=== PATIENT | male | born 1945 | race Caucasian/White ===

== ENCOUNTER 2019-01-08 12:59 | Inpatient (IN) ==
[2019-01-08] MEDS ORDERED: MetroNIDAZOLE 500 MG/100 ML 500 MG/100 ML BAG IVPB ONE (13:14)
[2019-01-08] MEDS ORDERED: *HR* FentaNYL (PF) 100 MCG/2 ML VIAL IVP ONE (13:17)
--- NOTE | 2019-01-08 13:18 | Emergency Department Note ---
Disposition Clinical Impression: Perforation of sigmoid colon due to diverticulitis UTI (urinary tract infection) Qualifiers: Urinary tract infection type: site unspecified Hematuria presence: without hematuria Qualified Code(s): N39.0 - Urinary tract infection, site not specified Disposition: Admitted As Inpatient Condition: Good Time of Disposition: 16:34 Abdominal Pain HPI - General Stated Complaint: Abdominal pain Time Seen by Provider: 01/08/19 13:05 Nursing Notes Reviewed: Yes Vital Signs Reviewed: Yes - History of Present Illness HPI Narrative: 73yo male presents from the [facility] for continued evaluation. He presented to their facility midmorning with left lower quadrant pain. Patient had a twinge of left lower quadrant pain approximately 2 weeks ago. He had intermittent twinges since. Yesterday, he began having continuous waxing and waning left lower quadrant pain. Described as sharp and stabbing. This became very intense this morning such that she could not tolerate it at home. [facility] their facility demonstrated perforated diverticulitis without abscess. He was transferred to this facility for continued care. [facility] lab work also demonstrated urinary tract infection. He was provided 1 g of Rocephin. No other antibiotics. PMH: GERD, KEIKO, hepatic cirrhosis, lumbar stenosis with sciatica, hx skin ca "not the bad kind per patient", CKD III, HTN, diabetes type 2 on insulin and oral anti-hyperglycemics, hx agent orange exposure She is not aware of any history of diverticulosis. No hx CAD, ACS, TIA, CVA Antiplatelet: ASA 81 PO Qday Anticoagulant: None ROS: Positive: Left lower quadrant pain, urinary urgency Negative: Fever, chills, nausea, vomiting, chest pain, back pain, flank pain, falls, diarrhea, constipation, melena, hematochezia - Related Data Allergies Allergy/AdvReac Type Severity Reaction Status Date / Time acetaminophen [From Vicodin] AdvReac Agitated Verified 01/08/19 16:22 hydrocodone [From Vicodin] AdvReac Agitated Verified 01/08/19 16:22 All systems ED: reviewed and negative except as stated. Review of Systems: As Per HPI Physical Exam Vital Signs Reviewed General: Patient is alert, oriented, and in mild distress from his abdominal pain. Head: atraumatic, normocephalic Eye: normal appearance, PERRL, EOMI, no scleral icterus, no conjunctival injection ENT: mucous membranes moist, normal external ear exam Neck: normal inspection, trachea midline, full ROM Chest: normal inspection, symmetric chest rise Respiratory: Good respiratory effort. Bilateral breath sounds are clear without wheezing, crackles, or rhonchi. Cardiovascular: Regular rate and rhythm. No clicks, rubs, gallops, or murmors. Normal heart sounds. Abdomen: Bowel sounds present normoactive. Abdomen is soft, nondistended. Mild diffuse tenderness with left upper and left lower quadrant moderate tenderness with moderate to severe left lower quadrant tenderness. No guarding or rebound. Unable to assess organomegaly secondary to patient's body habitus. Musculoskeletal: Spontaneously moving all extremities. Skin: warm, dry, intact. Neuro: GCS 15. No focal neurologic deficits observed. Psych: Patient's affect is appropriate for situation. Course Course Narrative: [facility] labs: Calcium 9.1 Lipase 57 Amylase 24 Sodium 141 Calcium 3.3 Chloride 105 CO2 28 Glucose 103 BUN 26 Creatinine 1.61 WBC 24.6 RBC 5.26 Hemoglobin 14.9 Hematocrit 1 44.3 Platelets 188.0 Neutrophils 78.8% Absolute neutrophil 19.4 Urine glucose negative Urine bilirubin negative Urine ketones negative Urine protein trace Urine nitrite positive Urine leukocyte esterase positive Urine bacteria many No lab value for urine epithelial cells but [facility] radiology report CT abdomen pelvis without contrast January 08 10:49 Findings: Diverticulosis. Inflammatory change within left lower quadrant. Several pockets of free air within left lower quadrant posterior to the descending colon/sigmoid colon junction. There is associated inflammatory stranding and small amount of free fluid. No organized abscess identified. No evidence for bowel obstruction. Appendix is unremarkable. Impression: Perforated left lower quadrant diverticulitis CT scan imaging received on disc which was given to nursing with request to give to radiology for upload Patient received 1 g Rocephin at the [facility] prior to transfer. At this facility: Patient provided Flagyl, Zosyn additional antibody coverage. Physical for pain control. Lactic acid, hepatic function with coagulation profile given history of hepatic cirrhosis, blood cultures. Discussed the patient with on-call general surgeon, Dr. roy. He is agreeable to see the patient on consultation with admission to internal medicine. No indication at this time for emergent surgery. Discussed the patient with the admitting hospitalist, Dr. Schmid. He is agreeable to accept the patient for continued evaluation monitoring with surgery on consult. Vital Signs Temperature 98.7 F 01/08/19 13:20 Pulse Rate 68 01/08/19 13:20 Respiratory Rate 16 01/08/19 13:20 Blood Pressure 124/68 01/08/19 13:20 O2 Sat by Pulse Oximetry 96 01/08/19 13:20 Temperature 98 F 01/08/19 16:24 Pulse Rate 70 01/08/19 16:24 Respiratory Rate 18 01/08/19 16:24 Blood Pressure 134/78 01/08/19 16:24 O2 Sat by Pulse Oximetry 95 01/08/19 16:24 Oxygen Delivery Oxygen Delivery Room Air Abdominal Pain - Lab Data Lab Results 01/08/19 01/08/19 01/08/19 Range/Units 13:40 13:40 13:40 PT 12.8 H (9.4-12.1) Seconds INR 1.1 Lactic Acid 1.0 (0.5-2.2) mmol/L Total Bilirubin 0.8 (0.3-1.0) mg/dL Direct Bilirubin 0.2 (0.0-0.2) mg/dL Indirect Bilirubin 0.6 (0.0-1.2) mg/dL AST 33 (13-39) Units/L ALT 36 (7-52) Units/L Alkaline Phosphatase 73 (34-104) Units/L Serum Total Protein 7.1 (6.4-8.9) g/dL Albumin 3.7 (3.5-5.7) g/dL Globulin 3.4 (2.4-3.5) g/dL Albumin/Globulin Ratio 1.1 (1.1-2.2)
[2019-01-08] MEDS ORDERED: Piperacillin/Tazobactam 4.5 GM in 0.9 % Sodium Chloride Mini Bag 100 ML IVPB ONE (13:31)
[2019-01-08] MEDS ORDERED: Piperacillin/Tazobactam 3.375 GM in 0.9 % Sodium Chloride Mini Bag 100 ML IVPB ONE (13:41)
[2019-01-08 14:18] LABS: Albumin 3.7 g/dL (3.5-5.7); Albumin/Globulin Ratio 1.1 (1.1-2.2); Bilirubin,Direct 0.2 mg/dL (0.0-0.2); Bilirubin,Indirect 0.6 mg/dL (0.0-1.2); Bilirubin,Total 0.8 mg/dL (0.3-1.0); Globulin 3.4 g/dL (2.4-3.5); Total Protein 7.1 g/dL (6.4-8.9)
[2019-01-08 14:23] LABS: INR 1.1; Prothrombin Time 12.8 Seconds (9.4-12.1)
--- NOTE | 2019-01-08 14:24 | Emergency Department Note ---
Disposition Clinical Impression: Perforation of sigmoid colon due to diverticulitis UTI (urinary tract infection) Qualifiers: Urinary tract infection type: site unspecified Hematuria presence: without hematuria Qualified Code(s): N39.0 - Urinary tract infection, site not specified Disposition: Admitted As Inpatient Condition: Good [facility]errals: [facility] [Primary Care Provider] - Abdominal Pain HPI - General Chief Complaint: ED Abdominal Pain Stated Complaint: Abdominal pain Time Seen by Provider: 01/08/19 13:05 Source: patient, EMS - History of Present Illness Pain Scale: 6 - Related Data Allergies Allergy/AdvReac Type Severity Reaction Status Date / Time acetaminophen [From Vicodin] AdvReac Agitated Verified 07/26/15 07:47 hydrocodone [From Vicodin] AdvReac Agitated Verified 07/26/15 07:47 Abdominal Pain PMH - Past Medical History Medical history: Reports: non-contributory, GERD Male Surgical History: Reports: non-contributory Psychiatric history: Reports: no psych history - Social History Smoking status: Never smoker Alcohol use: Reports: none Drug use: Reports: none Physical Exam - General Limitations: no limitations General appearance: alert, in no apparent distress Course Vital Signs Temperature 98.7 F 01/08/19 13:20 Pulse Rate 68 01/08/19 13:20 Respiratory Rate 16 01/08/19 13:20 Blood Pressure 124/68 01/08/19 13:20 O2 Sat by Pulse Oximetry 96 01/08/19 13:20 Temperature 98.7 F 01/08/19 13:20 Pulse Rate 68 01/08/19 13:20 Respiratory Rate 16 01/08/19 13:20 Blood Pressure 124/68 01/08/19 13:20 O2 Sat by Pulse Oximetry 96 01/08/19 13:20 Oxygen Delivery Oxygen Delivery Room Air Abdominal Pain - Lab Data Lab Results 01/08/19 01/08/19 Range/Units 13:40 13:40 Lactic Acid 1.0 (0.5-2.2) mmol/L Total Bilirubin 0.8 (0.3-1.0) mg/dL Direct Bilirubin 0.2 (0.0-0.2) mg/dL Indirect Bilirubin 0.6 (0.0-1.2) mg/dL AST 33 (13-39) Units/L ALT 36 (7-52) Units/L Alkaline Phosphatase 73 (34-104) Units/L Serum Total Protein 7.1 (6.4-8.9) g/dL Albumin 3.7 (3.5-5.7) g/dL Globulin 3.4 (2.4-3.5) g/dL Albumin/Globulin Ratio 1.1 (1.1-2.2) Attestation Statement - Attestation Attestation: I examined this patient and my medical decision-making was reviewed with the Resident Physician. I agree with the documented findings, disposition and treatment plan as described except to the extent set forth below. 73 year old male presnets to the ED with complaints of abdominal pain and [facility] a confirmed perforated diveriticulum without perionteal signs on his abdomen. Bee has stable vitals and we have consulted surgery who will see him as consult. Labs are otherwise unremarkable and we are waiting for a lactic acid to return. IVF ABX and IVF have been started
[2019-01-08] MEDS ORDERED: Naloxone 0.4 MG/ML INJ IVP PRN (15:55)
--- NOTE | 2019-01-08 16:01 | Internal Med History&Physical ---
Date of Encounter: 01/08/19 Time of Encounter: 15:59 Internal Medicine - H&P: HPI Chief complaint: Abdominal Pain Admitted From: Emergency Dept History of present illness: Alonso Ley is a 73 M w hx HTN, DM2, CKD3, KEIKO, obesity, ?cirrhosis, who p/w abd pain. Pain is in left lower quadrant and began several days back but significantly worsened yesterday, now all over his belly but still worse in LLQ. He and his and camped outside the [place] ED for evaluation this AM. Denies fevers, N/V, diarrhea. CT abdomen pelvis without contrast at their facility demonstrated perforated diverticulitis without abscess. He was transferred to this facility for continued care. Per excellent ED summary of patient's NH paperwork: NH labs: Lipase 57 Sodium 141 Potassium 3.3 Glucose 103 BUN 26 Creatinine 1.61 WBC 24.6 Hemoglobin 14.9 Platelets 188.0 Urine nitrite positive Urine leukocyte esterase positive Urine bacteria many [facility] radiology report: CT abdomen pelvis without contrast January 08 10:49 Impression: Perforated left lower quadrant diverticulitis In our ED, pt covered with Jennasyn, GenSurg Dr Urias notified, and patient admitted to medicine. Past Med Surg Social Fam HX - Past Medical History Medical history: non-contributory, GERD Psychiatric history: no psych history - Social History Smoking Status: Never smoker Smokeless Tobacco Status: No Alcohol use: none Drug use: none Internal Medicine - H&P: Meds Amino Acids/Mv,Th W-Fe,Mn [Biotect Plus Liquid] 3 - 5 spr PO BID PRN 01/08/19 [History] Amlodipine Besylate 2.5 mg PO DAILY 01/08/19 [History] Aspirin [Lo-Dose Aspirin EC] 81 mg PO DAILY 01/08/19 [History] Atenolol [Tenormin] 50 mg PO BID 01/08/19 [History] Cetirizine HCl [24Hour Allergy] 10 mg PO DAILY 01/08/19 [History] Fluticasone Propionate Nasal [Flonase] 2 spr NS HS 01/08/19 [History] Furosemide [Lasix] 80 mg PO DAILY 01/08/19 [History] GuaiFENesin/Dextromethorphan [Robitussin/DM] 10 ml PO Q6HR PRN 01/08/19 [History] Insulin Glargine [Lantus] 110 unit SQ BID 01/08/19 [History] Insulin Regular, Human [Novolin R] 35 unit SQ TIDWM 01/08/19 [History] Lidocaine Patch [Lidoderm 5% patch] 1 each TP DAILY 01/08/19 [History] Losartan Potassium [Cozaar] 50 mg PO BID 01/08/19 [History] Melatonin [Melatin] 3 mg PO HS 01/08/19 [History] Mupirocin [Bactroban Oint] 1 appl TP TID PRN 01/08/19 [History] Omeprazole [PriLOSEC] 20 mg PO BID 01/08/19 [History] Potassium Chloride [K-Tab ER] 20 meq PO DAILY 01/08/19 [History] Pregabalin [Lyrica] 150 mg PO BID 01/08/19 [History] Sodium Chloride 2 spr NS TID 01/08/19 [History] Tamsulosin HCl [Flomax] 0.4 mg PO DAILY 01/08/19 [History] Testosterone 60.75 mg TD DAILY 01/08/19 [History] glipiZIDE [Glipizide] 10 mg PO BID 01/08/19 [History] Allergy/AdvReac Type Severity Reaction Status Date / Time acetaminophen [From Vicodin] AdvReac Agitated Verified 01/08/19 16:22 hydrocodone [From Vicodin] AdvReac Agitated Verified 01/08/19 16:22 All Systems PM: A 10-system review of systems was performed and is negative for pertinent findings except as documented above in the HPI. - Constitutional Vitals: Temp Pulse Resp BP Pulse Ox 98.7 F 66 16 128/65 94 01/08/19 13:20 01/08/19 15:04 01/08/19 15:04 01/08/19 15:18 01/08/19 15:04 Exam: General: NAD, good eye contact, chronically ill appearing Head: Atraumatic, normocephalic. Face symmetric Eyes: EOMI, sclerae anicteric ENT: Mucous membranes moist. Normal oral mucosa and dentition. Trachea midline. Thoracic: No visible chest wall deformities. Normal breath sounds b/l, no wheezing or crackles Cardio: Normal S1 and S2, regular rate and rhythm, no murmurs. Abdomen: Obese and distended but per family is normal size, does have some tenderness LLQ and umbilical region, no rigidity or rebound tenderness Extremities: Warm, well perfused. DP pulses 2+ b/l. Does have edema to knees bilaterally and some dependent thigh edema Skin: Intact. No rashes, bruises, or ulcers Neuro: Drowsy, is oriented. Decent memory, poor concentration and attention. Speech fluent. Internal Med - H&P Results - Labs Labs: Liver Function 01/08/19 Range/Units 13:40 Total Bilirubin 0.8 (0.3-1.0) mg/dL Direct Bilirubin 0.2 (0.0-0.2) mg/dL AST 33 (13-39) Units/L ALT 36 (7-52) Units/L Alkaline Phosphatase 73 (34-104) Units/L Albumin 3.7 (3.5-5.7) g/dL - Summary of Assessment and Plan Summary of Assessment and Plan: Alonso Ley is a 73 M w hx HTN, DM2, CKD3, KEIKO, obesity, ?cirrhosis, who p/w abd pain, CT showing diverticulitis and air pockets, concerning for acute perforated diverticulitis. Acute diverticulitis c/b perforation: not tense/rigid on exam, does not seem to have peritonitis but could develop. Lactate normal. - GenSurg Dr Urias consulted, will see patient this afternoon, discussed case with him, to defer surgery if possible to avoid colostomy - Zosyn 3.375 q6h - no benefit from flagyl as zosyn covers anaerobes - serial abd exams - BCx pending HTN: continue atenolol 50 bid, holding losartan 100, amlodipine 2.5 DM2: holding PO meds, give levemir 30 bid (home dose is 110 bid per [facility] med list ?!), add SSI (home short acting is 35u tidac ?!) CKD3: noted, will monitor SC[facility] Obesity: BMI 37 Cirrhosis: reported in chart but patient's family unaware and denies this BPH: home flomax PPx: sqh FEN: NPO, no MIVF at this time Lines: PIV Consults: GenSurmarilyn Code: Full Dispo: patient requires inpatient eval and management at this time. Anticipate 4-5 days. From home; dispo depends on post-op course
[2019-01-08] MEDS ORDERED: Acetaminophen 325 MG TABLET PO PRN (17:54)
--- NOTE | 2019-01-08 17:57 | General Surgery Consult Note ---
Date of Encounter: 01/08/19 Time of Encounter: 17:55 History of Present Illness Consult date: 01/08/19 Reason for consult: abdominal pain (Diverticulosis, acute sigmoid diverticulitis with perforation) Requesting physician: Kev Barcenas History of present illness: 73-year-old transferred to [facility] after presenting to the [facility] urgent care with progressive abdominal pain. The patient describes left-sided abdominal pain for the past several weeks but has become progressively more severe over the past [address] abdomen and pelvis demonstrates diverticulosis with mural thickening and surrounding inflammatory changes within the left lower quadrant at the junction of the descending and sigmoid colons. Several pockets of extraluminal free air consistent with perforation and surrounding i nflammatory stranding is evident. No evidence of bowel obstruction or abscess was identified. The patient was transferred to [facility] for further evaluation and care Past medical history: Type 2 diabetes with chronic kidney disease stage III and polyneuropathy; obstructive sleep apnea; hypertension; chronic PTSD; chronic neck and back pain; hepatic cirrhosis; chronic laryngopharyngeal reflux; lumbosacral radiculopathy; spinal stenosis lumbar spine; ulnar neuropathy Surgical history: Cervical neck surgery; bilateral rotator cuff repair; stem cell implantation right knee; patient indicates he is scheduled for back surgery Allergies: Gemfibrozil; PRESTON inhibitors; oxycodone Medications: Glipizide 10 mg, 2 tablets twice a day Cetirizine 10 mg 1 by mouth daily as needed for allergy symptoms Fluticasone 2 sprays each nostril at bedtime Losartan 50 mg by mouth twice a day Potassium 10 mEq 2 tablets daily Atenolol 50 mg 1 by mouth twice a day Amlodipine 2.5 mg 1 by mouth daily Insulin glargine 110 units subcutaneous every morning and every evening Artificial saliva 3-5 sprays twice daily as needed for dry mouth Testosterone 1.62% 20.25 mg per pump topical gel 3 actuation's to affected area daily Pregabalin 150 mg by mouth twice a day Ketorolac 30 mg per mL 2 mL injectable into muscles for pain Furosemide 40 mg 2 tablets (80 mg) daily Omeprazole 20 mg by mouth twice a day Melatonin 3 mg 2 tablets/caps daily at bedtime Novolin R 35 units subcutaneous 3 times a day Tamsulosin 0.4 mg by mouth daily Lidoderm patch 5% 2 patches to the selected areas every 24 hours Social history: Patient is , lives with spouse; he quit smoking in 1976, he denies any active alcohol or illicit drug use. Physical examination: Age-appropriate, in no acute distress. He is lying comfortably in his hospital bed. The patient is afebrile, currently 98, pulse 70 and regular, respirations 18, blood pressure 134/78; 1.78 m tall, 117 kg, BMI 37.0 Skin: Warm, no obvious jaundice Lungs: Clear bilaterally; no obvious abdominal pain on deep inspiration Cardiac: Regular rate, no appreciable murmurs Abdomen obese with tenderness in the left lower quadrant. There is referred pain from the right lower quadrant to the left lower quadrant. There is abdominal pain with cough as well as localized rebound in the left lower quadrant. Bowel sounds were active. Extremities no obvious clubbing, cyanosis, or edema. CT abdomen/pelvis from the [facility], is not available for my review at the time of this dictation Labs: (Resulted from [facility]) WBC 24.6, hemoglobin 14.9, hematocrit 44.3; absolute neutrophil count 19.4; platelet count 188,000. Sodium 141, potassium 3.3, chloride 105, BUN 26, creatinine 1.61. Impression: 73-year-old referred from the [facility] after presenting with left lower quadrant abdominal pain. Patient demonstrates significant leukocytosis at 24.6 with radiologic evidence of diverticulosis, di verticulitis with focal perforation at the junction of the distal descending and sigmoid colon. The patient is hemodynamically stable. Treatment plan: NPO; pain control and antiemetics as needed IV antibiotics- I recommend Zosyn 3.375 g IV Q8H and metronidazole 500 mg IV Q6H for aggressive management of the acute inflammation evident on CT and clinical exam I will follow along with you and provide serial abdominal exams. If the patient responds to IV antibiotics with resolution of the acute abdominal inflammation, interval primary sigmoid colectomy can be considered in several days to 1 week. If the abdominal pain worsens or clinical status deteriorates, the patient will require an urgent Dino procedure. This is been discussed extensively with the and his family in attendance. If at all possible, the would prefer to avoid a Dino procedure as this would result in an end colostomy. Thank you for this consultation. Past Med Surg Social Fam HX - Past Medical History Medical history: non-contributory, GERD Psychiatric history: no psych history - Social History Smoking Status: Never smoker Smokeless Tobacco Status: No Alcohol use: none Drug use: none Medications and Allergies Amino Acids/Mv,Th W-Fe,Mn [Biotect Plus Liquid] 3 - 5 spr PO BID PRN 01/08/19 [History] Amlodipine Besylate 2.5 mg PO DAILY 01/08/19 [History] Aspirin [Lo-Dose Aspirin EC] 81 mg PO DAILY 01/08/19 [History] Atenolol [Tenormin] 50 mg PO BID 01/08/19 [History] Cetirizine HCl [24Hour Allergy] 10 mg PO DAILY 01/08/19 [History] Fluticasone Propionate Nasal [Flonase] 2 spr NS HS 01/08/19 [History] Furosemide [Lasix] 80 mg PO DAILY 01/08/19 [History] GuaiFENesin/Dextromethorphan [Robitussin/DM] 10 ml PO Q6HR PRN 01/08/19 [History] Insulin Glargine [Lantus] 110 unit SQ BID 01/08/19 [History] Insulin Regular, Human [Novolin R] 35 unit SQ TIDWM 01/08/19 [History] Lidocaine Patch [Lidoderm 5% patch] 1 each TP DAILY 01/08/19 [History] Losartan Potassium [Cozaar] 50 mg PO BID 01/08/19 [History] Melatonin [Melatin] 3 mg PO HS 01/08/19 [History] Mupirocin [Bactroban Oint] 1 appl TP TID PRN 01/08/19 [History] Omeprazole [PriLOSEC] 20 mg PO BID 01/08/19 [History] Potassium Chloride [K-Tab ER] 20 meq PO DAILY 01/08/19 [History] Pregabalin [Lyrica] 150 mg PO BID 01/08/19 [History] Sodium Chloride 2 spr NS TID 01/08/19 [History] Tamsulosin HCl [Flomax] 0.4 mg PO DAILY 01/08/19 [History] Testosterone 60.75 mg TD DAILY 01/08/19 [History] glipiZIDE [Glipizide] 10 mg PO BID 01/08/19 [History] Allergy/AdvReac Type Severity Reaction Status Date / Time acetaminophen [From Vicodin] AdvReac Agitated Verified 01/08/19 16:22 hydrocodone [From Vicodin] AdvReac Agitated Verified 01/08/19 16:22 Review of Systems All systems PM: The remainder of the systems were reviewed and are negative General Surgery Exam Initial Vital Signs Temp Pulse Resp BP Pulse Ox 98.7 F 68 16 124/68 96 01/08/19 13:20 01/08/19 13:20 01/08/19 13:20 01/08/19 13:20 01/08/19 13:20 Exam Initial Vital Signs Temp Pulse Resp BP Pulse Ox 98.7 F 68 16 124/68 96 01/08/19 13:20 01/08/19 13:20 01/08/19 13:20 01/08/19 13:20 01/08/19 13:20 Results - Labs Abnormal lab results PT 12.8 Seconds (9.4-12.1) H 01/08/19 13:40 Diabetes panel 01/08/19 Range/Units 13:40 AST 33 (13-39) Units/L ALT 36 (7-52) Units/L Alkaline Phosphatase 73 (34-104) Units/L Albumin 3.7 (3.5-5.7) g/dL Calcium panel 01/08/19 Range/Units 13:40 Albumin 3.7 (3.5-5.7) g/dL Adrenal panel 01/08/19 Range/Units 13:40 Total Bilirubin 0.8 (0.3-1.0) mg/dL AST 33 (13-39) Units/L ALT 36 (7-52) Units/L Alkaline Phosphatase 73 (34-104) Units/L Albumin 3.7 (3.5-5.7) g/dL All other labs normal. Consult Discharge Plan - Plan [facility]errals: [facility] [Primary Care Provider] -
[2019-01-08] MEDS: Piperacillin/Tazobactam 3.375 GM in 0.9 % Sodium Chloride Mini Bag 100 ML IVPB SCH (17:58)
[2019-01-08] MEDS: *HR* Heparin 5,000 UNIT/ML VIAL SQ SCH (18:00)
[2019-01-08] MEDS ORDERED: INSULIN GLARGINE SQ SCH (21:00)
[2019-01-08] MEDS: Pregabalin 75 MG CAPSULE PO SCH (21:46)
[2019-01-09] MEDS: Piperacillin/Tazobactam 3.375 GM in 0.9 % Sodium Chloride Mini Bag 100 ML IVPB SCH ×3 (02:08→17:30)
[2019-01-09] MEDS: *HR* Heparin 5,000 UNIT/ML VIAL SQ SCH ×2 (05:22→17:29)
[2019-01-09 06:46] LABS: Basophils % 0.2 %; Eosinophils # 0.1 K/mcL (0.0-0.6); Eosinophils % 0.4 %; Hematocrit 44.7 % (37.5-50.1); Hemoglobin 14.7 g/dL (12.9-16.9); Immature Granulocytes % 0.6 % (0-4); Lymphocytes # 2.1 K/mcL (0.6-4.6); Lymphocytes % 10.2 %; Mean Corpuscular HGB Conc 32.9 g/dL (31.6-35.5); Mean Corpuscular Hemoglobin 27.9 pg (28.0-33.3); Mean Corpuscular Volume 84.8 fL (83.0-100.0); Mean Platelet Volume 11.6 fL (9.4-12.4); Monocytes # 1.1 K/mcL (0.0-1.3); Monocytes % 5.4 %; Platelet Count 166 K/mcL (140-400); Red Blood Count 5.27 M/mcL (4.19-5.50); Red Cell Distribution Width 15.1 % (11.5-14.5); Segmented Neutrophils % 83.2 %
[2019-01-09 06:58] LABS: INR 1.2; Prothrombin Time 13.3 Seconds (9.4-12.1)
[2019-01-09 07:07] LABS: Albumin 3.5 g/dL (3.5-5.7); Bilirubin,Direct 0.5 mg/dL (0.0-0.2); Bilirubin,Indirect 0.9 mg/dL (0.0-1.2); Bilirubin,Total 1.4 mg/dL (0.3-1.0); Bilirubin,Total 1.5 mg/dL (0.3-1.0); Calcium 9.5 mg/dL (8.6-10.3); Globulin 3.5 g/dL (2.4-3.5); Magnesium 2.1 mg/dL (1.6-2.6); Potassium 3.5 mEq/L (3.5-5.1)
[2019-01-09] MEDS ORDERED: Dextrose Gel 15 GM/37.5 ML TUBE PO PRN ×2 (08:04)
[2019-01-09] MEDS ORDERED: D5% in Water 1,000 ML IVC PRN (08:04)
[2019-01-09] MEDS ORDERED: *HR* Dextrose 50 % in Water (Syg) 50 ML SYRINGE IVP PRN (08:04)
[2019-01-09] MEDS: Pregabalin 75 MG CAPSULE PO SCH ×2 (10:14→21:01)
[2019-01-09] MEDS: Aspirin Enteric Coated 81 MG Tablet PO SCH (10:15)
[2019-01-09] MEDS: D5% in 0.9% NACL 1,000 ML IVC SCH ×2 (10:17→22:20)
--- NOTE | 2019-01-09 12:20 | General Surgery Progress Note ---
Date of Encounter: 01/09/19 Time of Encounter: 12:14 Subjective Narrative: General Surgery - Hospital Day #1 The patient is feeling better, denies abdominal pain. Maximum temperature earlier this morning 99.9, currently 98.1; pulse 73, ranging 73-90; respiratory rate 14 and unlabored. Blood pressure 116/66. SPO2 on room air 93% Lungs: Clear, no obvious abdominal pain on deep inspiration Abdomen protuberant, soft, nontender. No obvious intra-abdominal masses. No rebound. Active bowel sounds. Laboratories: WBC 20.5, neutrophils 17.0; hemoglobin 14.7, hematocrit 44.7; platelet count 166,000. Electrolytes within normal limits; BUN 23, creatinine 1.53. (BUN yesterday per [facility], 26, creatinine 1.61) CT from [facility] was reviewed with [place] [facility]. Impression: 73-year-old transferred from [facility] after presenting there with progressive abdominal pain. Clinical and radiologic findings were consistent with acute perforated appendicitis. Review of the CT with [place] [facility] shows focal inflammation and localized perforation. No obvious abscess formation. Since transfer to [facility] the patient has responded to IV antibiotic therapy. Abdominal pain is described as resolved. Leukocytosis is trending towards normal. Renal status is also improved. Recommendations: Allow ice chips sparingly Continue Zosyn and metronidazole Repeat labs in a.m. Objective Vital Signs - Last 8 Hours Temp Pulse Resp BP Pulse Ox 01/09/19 10:46 98.1 F 73 15 117/65 93 01/09/19 07:00 99.0 F 77 14 116/66 93 01/09/19 05:23 99.9 F H Intake and Output 01/08/19 01/09/19 01/09/19 23:59 07:59 15:59 Intake Total 100 / 100 100 / 100 Output Total 725 / 725 200 / 200 Balance -625 / -625 -100 / -100 Intake: IV Fluids 100 / 100 100 / 100 Zosyn 3.375 GM In 0.9 % Sodium 100 / 100 100 / 100 Chloride (Mini-Bag +) 100 ML @ 25 mls/hr IVPB Q8H [facility]Y Rx#: [id number] Oral 0 / 0 0 / 0 Output: Urine 725 / 725 200 / 200 Other: Meal npo # Voids 1 Weight 117 kg 117.4 kg Blood Glucose* 86 107 131 Patient Weight 01/09/19 23:59 Weight 117.4 kg - Labs 01/09/19 05:41 01/09/19 05:41 Diabetes panel 01/08/19 01/09/19 01/09/19 Range/Units 13:40 05:41 05:41 Sodium 139 (136-145) mEq/L Potassium 3.5 (3.5-5.1) mEq/L Chloride 103 (98-107) mEq/L Carbon Dioxide 27 (23-29) mEq/L BUN 23 (8-23) mg/dL Creatinine 1.53 H (0.70-1.30) mg/dL Glucose 102 (70-105) mg/dL Calcium 9.5 (8.6-10.3) mg/dL AST 33 26 25 (13-39) Units/L ALT 36 30 30 (7-52) Units/L Alkaline Phosphatase 73 70 72 (34-104) Units/L Albumin 3.7 3.5 3.5 (3.5-5.7) g/dL Calcium panel 01/08/19 01/09/19 01/09/19 Range/Units 13:40 05:41 05:41 Calcium 9.5 (8.6-10.3) mg/dL Albumin 3.7 3.5 3.5 (3.5-5.7) g/dL Pituitary panel 01/09/19 Range/Units 05:41 Sodium 139 (136-145) mEq/L Potassium 3.5 (3.5-5.1) mEq/L Chloride 103 (98-107) mEq/L Carbon Dioxide 27 (23-29) mEq/L BUN 23 (8-23) mg/dL Creatinine 1.53 H (0.70-1.30) mg/dL Glucose 102 (70-105) mg/dL Calcium 9.5 (8.6-10.3) mg/dL Adrenal panel 01/08/19 01/09/19 01/09/19 Range/Units 13:40 05:41 05:41 Sodium 139 (136-145) mEq/L Potassium 3.5 (3.5-5.1) mEq/L Chloride 103 (98-107) mEq/L Carbon Dioxide 27 (23-29) mEq/L BUN 23 (8-23) mg/dL Creatinine 1.53 H (0.70-1.30) mg/dL Glucose 102 (70-105) mg/dL Calcium 9.5 (8.6-10.3) mg/dL Total Bilirubin 0.8 1.5 H 1.4 H (0.3-1.0) mg/dL AST 33 26 25 (13-39) Units/L ALT 36 30 30 (7-52) Units/L Alkaline Phosphatase 73 70 72 (34-104) Units/L Albumin 3.7 3.5 3.5 (3.5-5.7) g/dL Consult Discharge Plan - Plan [facility]errals: [facility] [Primary Care Provider] -
--- NOTE | 2019-01-09 13:19 | Internal Med Progress Note ---
Hospitalist Progress Note - Encounter Date of Encounter: 01/09/19 Time of Encounter: 13:17 - Subjective Interval History: I have seen and evaluated the patient at bedside. Patient reports abdominal discomfort but improved when compared with presentation. denies nausea or vomiting. - Exam Vitals: Temp Pulse Resp BP Pulse Ox 98.1 F 73 15 117/65 93 01/09/19 10:46 01/09/19 10:46 01/09/19 10:46 01/09/19 10:46 01/09/19 10:46 Exam: Vitals: Reviewed General: Alert and oriented x4. In mild distress due to abdominal discomfort Skin: Normal color, no rash, no lesions. HEENT: EOM, pupils equal, round and reactive. Cardiovascular: RRR, normal S1 & S2, no rubs, murmurs or gallops. Lungs: CTA b/l, no wheezes or crackles. Abdomen: Obese, soft, non-tender, no rigidity. NABS in all 4 quadrants Extremities: No deformity, no edema or tenderness, no joint swelling or clubbing. Neurological: Normal cognition and motor skills. Rest of the physical exam is non contributory - Assessment and Plan (1) Perforation of sigmoid colon due to diverticulitis Current Visit: Yes Status: Acute Assessment and Plan: patient is on broad spectrum IV antibiotics. On Piperacillin/tazobactam 3.375mg/IV Q8HRs and metronidazole 500mg/IV Q6HRs. surgery recommendations haresh reciated. (2) XIMENA (acute kidney injury) Current Visit: Yes Status: Acute Assessment and Plan: unclear whether this an ximena or its the patient baseline. patient on IV hydration. will re-assess kidney function in the morning. (3) Diabetes Current Visit: Yes Status: Chronic Assessment and Plan: patient is NPO. accu-checks Q6HRs, plus lispro sliding scale. on IV hydration to avoid hypoglycemia (4) Hypertension Current Visit: Yes Status: Chronic Assessment and Plan: BP is well controlled on atenolol. patient on losartan 50mg/PO BID and furosemide 80mg/PO daily as outpatient, held due to suspected XIMENA. DVT Prophylaxis: on heparin subq - Summary of Assessment and Plan Summary of Assessment and Plan: patient to remain in the hospital due to perforated bowel on broad spectrum IV antibiotics - Time Spent with Patient Total time spent is greater than 50% in coordination of care (as documented) at patient's floor/unit and/or counseling patient: Greater than 35 minutes (40) Plan of Care Discussed with: patient (his family and the nurse.) Internal Medicine: Result - Labs CBC & Chem 7: 01/09/19 05:41 01/09/19 05:41 Labs: Short CBC 01/09/19 Range/Units 05:41 WBC 20.5 H (4.3-11.1) K/mcL Hgb 14.7 (12.9-16.9) g/dL Hct 44.7 (37.5-50.1) % Plt Count 166 (140-400) K/mcL Neutrophils # 17.0 H (1.6-8.9) K/mcL BMP 01/09/19 05:41 Sodium 139 Potassium 3.5 Chloride 103 Carbon Dioxide 27 BUN 23 Creatinine 1.53 H Glucose 102 Calcium 9.5 Liver Function 01/08/19 01/09/19 01/09/19 Range/Units 13:40 05:41 05:41 Total Bilirubin 0.8 1.5 H 1.4 H (0.3-1.0) mg/dL Direct Bilirubin 0.2 0.5 H (0.0-0.2) mg/dL AST 33 26 25 (13-39) Units/L ALT 36 30 30 (7-52) Units/L Alkaline Phosphatase 73 70 72 (34-104) Units/L Albumin 3.7 3.5 3.5 (3.5-5.7) g/dL - ABG Interpretation ABG results: PT/INR, D-dimer PT 13.3 Seconds (9.4-12.1) H 01/09/19 05:41 Consult Discharge Plan - Plan Referrals: [facility] [Primary Care Provider] - (3) Diabetes Qualifiers: Diabetes mellitus type: type 2 Diabetes mellitus chcf insulin use: unspe cified chcf insulin use status Diabetes mellitus complication status: with unspecified complications Qualified Code(s): E11.8 - Type 2 diabetes mellitus with unspecified complications (4) Hypertension Qualifiers: Hypertension type: unspecified Qualified Code(s): I10 - Essential (primary) hypertension
[2019-01-09] MEDS: Insulin LISPRO 300 UNITS/3 ML VIAL SQ SCH ×2 (14:25→17:58)
[2019-01-09] MEDS: MetroNIDAZOLE 500 MG/100 ML 500 MG/100 ML BAG IVPB SCH ×2 (14:29→17:29)
[2019-01-10] MEDS: Insulin LISPRO 300 UNITS/3 ML VIAL SQ SCH ×4 (01:24→18:57)
[2019-01-10] MEDS: Piperacillin/Tazobactam 3.375 GM in 0.9 % Sodium Chloride Mini Bag 100 ML IVPB SCH ×3 (01:29→18:57)
[2019-01-10] MEDS: *HR* Heparin 5,000 UNIT/ML VIAL SQ SCH (05:19)
[2019-01-10] MEDS: MetroNIDAZOLE 500 MG/100 ML 500 MG/100 ML BAG IVPB SCH ×4 (05:20→19:19)
[2019-01-10 06:32] LABS: Basophils % 0.2 %; Eosinophils # 0.1 K/mcL (0.0-0.6); Eosinophils % 0.9 %; Hematocrit 40.5 % (37.5-50.1); Hemoglobin 13.2 g/dL (12.9-16.9); Immature Granulocytes % 0.5 % (0-4); Lymphocytes # 1.8 K/mcL (0.6-4.6); Lymphocytes % 13.6 %; Mean Corpuscular HGB Conc 32.6 g/dL (31.6-35.5); Mean Corpuscular Hemoglobin 27.9 pg (28.0-33.3); Mean Corpuscular Volume 85.6 fL (83.0-100.0); Mean Platelet Volume 11.3 fL (9.4-12.4); Monocytes # 0.8 K/mcL (0.0-1.3); Monocytes % 6.1 %; Neutrophils # 10.2 K/mcL (1.6-8.9); Platelet Count 112 K/mcL (140-400); Red Blood Count 4.73 M/mcL (4.19-5.50); Red Cell Distribution Width 14.7 % (11.5-14.5); Segmented Neutrophils % 78.7 %
[2019-01-10 06:52] LABS: BUN/Creatinine Ratio 15 (6-26); Blood Urea Nitrogen 20 mg/dL (8-23); Calcium 8.9 mg/dL (8.6-10.3); Carbon Dioxide 28 mEq/L (23-29); Chloride 104 mEq/L (98-107); Glucose 200 mg/dL (70-105); Osmolality,Calculated 294 (280-300); Potassium 3.8 mEq/L (3.5-5.1); Sodium 138 mEq/L (136-145); eGFR For Non-African Americans 53 (> 60)
[2019-01-10] MEDS: Aspirin Enteric Coated 81 MG Tablet PO SCH (08:25)
[2019-01-10] MEDS: Pregabalin 75 MG CAPSULE PO SCH ×2 (08:25→20:59)
--- NOTE | 2019-01-10 09:02 | Internal Med Progress Note ---
Hospitalist Progress Note - Encounter Date of Encounter: 01/10/19 Time of Encounter: 09:01 - Subjective Interval History: I have seen and evaluated the patient at bedside. Patient reports his abdominal pain has decreased, denies nausea or vomiting. Denies loose stool or diarrhea. - Exam Vitals: Temp Pulse Resp BP Pulse Ox 99.0 F 77 14 120/68 92 01/10/19 06:23 01/10/19 06:23 01/10/19 06:23 01/10/19 06:23 01/10/19 06:23 Exam: Vitals: Reviewed General: Alert and oriented x4. In no acute distress. Cardiovascular: RRR, normal S1 & S2, no rubs, murmurs or gallops. Lungs: CTA b/l, no wheezes or crackles. Abdomen: Obese, soft, LLQ tenderness, no rigidity. NABS in all 4 quadrants Extremities: No edema Neurological: Normal cognition. Rest of the physical exam is non contributory - Assessment and Plan (1) Perforation of sigmoid colon due to diverticulitis Current Visit: Yes Status: Acute Assessment and Plan: Abdominal discomfort improving. patient afebrile for >24 hours. Plan plan of care per surgery recommendations continue broad spectrum IV antibiotics. On Piperacillin/tazobactam 3.375mg/IV Q8HRs and metronidazole 500mg/IV Q6HRs. Decrease IV fluids to 50 ml/hr. On D5NS, unclear if patient has a Hx of CHF, he is on 80mg of furosemide at home. Will order TTE for evaluation NPO except for ice chips. (2) Diabetes Current Visit: Yes Status: Chronic Assessment and Plan: Patient is NPO. continue Accu-checks Q6HRs plus lispro low dose sliding scale Q6HRs (3) Hypertension Current Visit: Yes Status: Chronic Assessment and Plan: Blood pressure is well controlled. Patient is on a beta carolyn. Continue to hold amlodipine, furosemide and losartan (4) CKD (chronic kidney disease) Current Visit: Yes Status: Chronic Assessment and Plan: slight improvement of the kidney function on IV hydration. will continue to hold furosemide for one more day. continue nephro-protective strategies. DVT Prophylaxis: On heparin subQ. - Summary of Assessment and Plan Summary of Assessment and Plan: patient to remain in the hospital due to perforated bowel on broad spectrum IV antibiotics - Time Spent with Patient Total time spent is greater than 50% in coordination of care (as documented) at patient's floor/unit and/or counseling patient: Greater than 35 minutes (40) Plan of Care Discussed with: patient (and the nurse.) Internal Medicine: Result - Labs CBC & Chem 7: 01/10/19 06:12 01/10/19 06:12 Labs: Short CBC 01/10/19 Range/Units 06:12 WBC 12.9 H (4.3-11.1) K/mcL Hgb 13.2 D (12.9-16.9) g/dL Hct 40.5 (37.5-50.1) % Plt Count 112 L (140-400) K/mcL Neutrophils # 10.2 H (1.6-8.9) K/mcL BMP 01/10/19 06:12 Sodium 138 Potassium 3.8 Chloride 104 Carbon Dioxide 28 BUN 20 Creatinine 1.32 H Glucose 200 H Calcium 8.9 - ABG Interpretation ABG results: PT/INR, D-dimer PT 13.3 Seconds (9.4-12.1) H 01/09/19 05:41 Consult Discharge Plan - Plan Referrals: [facility] [Primary Care Provider] - (2) Diabetes Qualifiers: Diabetes mellitus type: type 2 Diabetes mellitus shelter insulin use: unspecified shelter insulin use status Diabetes mellitus complication status: with unspecified complications Qualified Code(s): E11.8 - Type 2 diabetes mellitus with unspecified complications (3) Hypertension Qualifiers: Hypertension type: unspecified Qualified Code(s): I10 - Essential (primary) hypertension (4) CKD (chronic kidney disease) Qualifiers: Chronic kidney disease stage: stage 2 (mild) Qualified Code(s): N18.2 - Chronic kidney disease, stage 2 (mild)
--- NOTE | 2019-01-10 13:30 | General Surgery Progress Note ---
Date of Encounter: 01/10/19 Time of Encounter: 13:26 Subjective Narrative: General Surgery - Hospital Day #2 Patient feeling well, describes pain to be regressing Afebrile, MAXIMUM TEMPERATURE 99.0 in the last 24 hours; pulse 75-79, respirations 14-15, blood pressure stable at 129/75 Lungs: Clear, no abdominal pain and deep inspiration Abdomen protuberant with minimal tenderness left lower quadrant to deep palpation. No obvious intra-abdominal masses or rebound. Patient describes passage of small amounts of flatus. No BM Urine output approximately 700 mL for 01/09/19; 500 mL so far today Labs: WBC has fallen to 12.9, neutrophils 10.2 (previously 17.0) hemoglobin 13.2/hematocrit 40.5. Platelet count has fallen to 112,000. Electrolytes within normal limits, BUN 20, creatinine has improved to 1.32. eGFR 53 (previously 45) Impression: Acute perforated sigmoid diverticulitis. Patient responding to IV antibiotics. 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) Recommendations: Continue Zosyn and metronidazole Hold heparin Allow clear liquids Continue to monitor her abdominal status closely Objective Vital Signs - Last 8 Hours Temp Pulse Resp BP Pulse Ox 01/10/19 10:32 98.7 F 79 15 129/75 94 01/10/19 06:23 99.0 F 77 14 120/68 92 Intake and Output 01/09/19 01/10/19 01/10/19 23:59 07:59 15:59 Intake Total 1200 / 1200 300 / 300 Output Total 500 / 500 200 / 200 300 / 300 Balance 700 / 700 100 / 100 -300 / -300 Intake: IV Fluids 1200 / 1200 300 / 300 D5% And 0.9% Nacl 1000 Ml 1,000 1000 / 1000 ML @ 75 mls/hr IVC .[id number] [facility]Y Rx#:[id number] Flagyl Premix 500 MG/100 ML 500 100 / 100 200 / 200 mg In 100 ml @ 100 mls/hr IVPB Q6HR [facility]Y Rx#:[id number] Zosyn 3.375 GM In 0.9 % Sodium 100 / 100 100 / 100 Chloride (Mini-Bag +) 100 ML @ 25 mls/hr IVPB Q8H [facility]Y Rx#: [id number] Oral 0 / 0 0 / 0 Output: Urine 500 / 500 200 / 200 300 / 300 Other: Meal npo NPO # Voids 1 Blood Glucose* 136 183 193 - Labs 01/10/19 06:12 01/10/19 06:12 Diabetes panel 01/10/19 Range/Units 06:12 Sodium 138 (136-145) mEq/L Potassium 3.8 (3.5-5.1) mEq/L Chloride 104 (98-107) mEq/L Carbon Dioxide 28 (23-29) mEq/L BUN 20 (8-23) mg/dL Creatinine 1.32 H (0.70-1.30) mg/dL Glucose 200 H (70-105) mg/dL Calcium 8.9 (8.6-10.3) mg/dL Calcium panel 01/10/19 Range/Units 06:12 Calcium 8.9 (8.6-10.3) mg/dL Pituitary panel 01/10/19 Range/Units 06:12 Sodium 138 (136-145) mEq/L Potassium 3.8 (3.5-5.1) mEq/L Chloride 104 (98-107) mEq/L Carbon Dioxide 28 (23-29) mEq/L BUN 20 (8-23) mg/dL Creatinine 1.32 H (0.70-1.30) mg/dL Glucose 200 H (70-105) mg/dL Calcium 8.9 (8.6-10.3) mg/dL Adrenal panel 01/10/19 Range/Units 06:12 Sodium 138 (136-145) mEq/L Potassium 3.8 (3.5-5.1) mEq/L Chloride 104 (98-107) mEq/L Carbon Dioxide 28 (23-29) mEq/L BUN 20 (8-23) mg/dL Creatinine 1.32 H (0.70-1.30) mg/dL Glucose 200 H (70-105) mg/dL Calcium 8.9 (8.6-10.3) mg/dL Consult Discharge Plan - Plan [facility]errals: [facility] [Primary Care Provider] -
[2019-01-10] MEDS: D5% in 0.9% NACL 1,000 ML IVC SCH (18:59)
[2019-01-11] MEDS: Insulin LISPRO 300 UNITS/3 ML VIAL SQ SCH ×4 (00:06→17:15)
[2019-01-11] MEDS: Piperacillin/Tazobactam 3.375 GM in 0.9 % Sodium Chloride Mini Bag 100 ML IVPB SCH ×3 (02:17→17:34)
[2019-01-11] MEDS: D5% in 0.9% NACL 1,000 ML IVC SCH (02:21)
[2019-01-11 04:50] LABS: Basophils % 0.3 %; Eosinophils # 0.2 K/mcL (0.0-0.6); Eosinophils % 1.5 %; Hematocrit 39.1 % (37.5-50.1); Hemoglobin 12.7 g/dL (12.9-16.9); Immature Granulocytes % 0.8 % (0-4); Lymphocytes # 1.7 K/mcL (0.6-4.6); Lymphocytes % 15.7 %; Mean Corpuscular HGB Conc 32.5 g/dL (31.6-35.5); Mean Corpuscular Hemoglobin 28.4 pg (28.0-33.3); Mean Corpuscular Volume 87.5 fL (83.0-100.0); Mean Platelet Volume 11.5 fL (9.4-12.4); Monocytes # 0.9 K/mcL (0.0-1.3); Monocytes % 8.1 %; Neutrophils # 8.1 K/mcL (1.6-8.9); Platelet Count 118 K/mcL (140-400); Red Blood Count 4.47 M/mcL (4.19-5.50); Red Cell Distribution Width 14.6 % (11.5-14.5); Segmented Neutrophils % 73.6 %
[2019-01-11 05:10] LABS: BUN/Creatinine Ratio 12 (6-26); Blood Urea Nitrogen 13 mg/dL (8-23); Calcium 8.6 mg/dL (8.6-10.3); Carbon Dioxide 25 mEq/L (23-29); Chloride 107 mEq/L (98-107); Glucose 178 mg/dL (70-105); Magnesium 2.1 mg/dL (1.6-2.6); Osmolality,Calculated 293 (280-300); Phosphorous 2.1 mg/dL (2.7-4.5); Potassium 3.4 mEq/L (3.5-5.1); Sodium 139 mEq/L (136-145); eGFR For Non-African Americans > 60 (> 60)
[2019-01-11] MEDS: MetroNIDAZOLE 500 MG/100 ML 500 MG/100 ML BAG IVPB SCH ×5 (05:58→23:05)
[2019-01-11] MEDS: Pregabalin 75 MG CAPSULE PO SCH ×2 (08:48→20:32)
[2019-01-11] MEDS: Aspirin Enteric Coated 81 MG Tablet PO SCH (08:48)
[2019-01-11] MEDS ORDERED: Isovue-370 500 ML BOTTLE IVP ONE (11:13)
--- NOTE | 2019-01-11 11:23 | General Surgery Progress Note ---
Date of Encounter: 01/11/19 Time of Encounter: 11:18 Subjective Narrative: General Surgery - Hospital Day #3 Patient feeling well, voicing no complaints; abdominal pain continues to regress. Afebrile, 98.7, pulse 86, RR 18; BP 140/75 Patient is tolerating clear liquids, no abdominal distention, increased pain, nausea or vomiting. Abdomen is protuberant with minimal tenderness to deep palpation left lower quadrant. Active bowel sounds. Laboratories: Leukocytosis has resolved, WBC 11.1, neutrophils have normalized 8.1. Platelet count 118,000 Electrolytes notable for potassium 3.4 with phosphorus 2.1, otherwise electrolytes, BUN, creatinine within normal limits Impression: Acute perforated sigmoid diverticulitis. 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 - Supplementation ordered Plan: Check CT abdomen and pelvis with oral and IV contrast in a.m. Continue IV Zosyn and metronidazole Allow full liquid diet Objective Vital Signs - Last 8 Hours Temp Pulse Resp BP Pulse Ox 01/11/19 08:16 98.7 F 86 18 148/75 98 01/11/19 04:37 98.9 F 75 15 131/71 94 Intake and Output 01/10/19 01/11/19 01/11/19 23:59 07:59 15:59 Intake Total 740 / 740 1200 / 1200 Output Total 200 / 200 0 / 0 Balance 540 / 540 1200 / 1200 Intake: IV Fluids 200 / 200 1200 / 1200 D5% And 0.9% Nacl 1000 Ml 1,000 1000 / 1000 ML @ 50 mls/hr IVC .Q20H [facility]Y Rx#:[id number] Flagyl Premix 500 MG/100 ML 500 100 / 100 100 / 100 mg In 100 ml @ 100 mls/hr IVPB Q6HR [facility]Y Rx#:[id number] Zosyn 3.375 GM In 0.9 % Sodium 100 / 100 100 / 100 Chloride (Mini-Bag +) 100 ML @ 25 mls/hr IVPB Q8H [facility]Y Rx#: [id number] Oral 540 / 540 0 / 0 Output: Urine 200 / 200 0 / 0 Other: Meal CLEARS Weight 117.4 kg Blood Glucose* 253 171 Patient Weight 01/11/19 23:59 Weight 117.4 kg - Labs 01/11/19 04:10 01/11/19 04:10 Diabetes panel 01/11/19 Range/Units 04:10 Sodium 139 (136-145) mEq/L Potassium 3.4 L (3.5-5.1) mEq/L Chloride 107 (98-107) mEq/L Carbon Dioxide 25 (23-29) mEq/L BUN 13 (8-23) mg/dL Creatinine 1.09 (0.70-1.30) mg/dL Glucose 178 H (70-105) mg/dL Calcium 8.6 (8.6-10.3) mg/dL Calcium panel 01/11/19 Range/Units 04:10 Calcium 8.6 (8.6-10.3) mg/dL Phosphorus 2.1 L (2.7-4.5) mg/dL Pituitary panel 01/11/19 Range/Units 04:10 Sodium 139 (136-145) mEq/L Potassium 3.4 L (3.5-5.1) mEq/L Chloride 107 (98-107) mEq/L Carbon Dioxide 25 (23-29) mEq/L BUN 13 (8-23) mg/dL Creatinine 1.09 (0.70-1.30) mg/dL Glucose 178 H (70-105) mg/dL Calcium 8.6 (8.6-10.3) mg/dL Adrenal panel 01/11/19 Range/Units 04:10 Sodium 139 (136-145) mEq/L Potassium 3.4 L (3.5-5.1) mEq/L Chloride 107 (98-107) mEq/L Carbon Dioxide 25 (23-29) mEq/L BUN 13 (8-23) mg/dL Creatinine 1.09 (0.70-1.30) mg/dL Glucose 178 H (70-105) mg/dL Calcium 8.6 (8.6-10.3) mg/dL Consult Discharge Plan - Plan Referrals: [facility] [Primary Care Provider] -
--- NOTE | 2019-01-11 14:29 | Internal Med Progress Note ---
Hospitalist Progress Note - Encounter Date of Encounter: 01/11/19 Time of Encounter: 14:24 - Subjective Interval History: I have seen and evaluated the patient at bedside. patient report abdominal discomfort. denies nausea or vomiting. denies shortness of breath. - Exam Vitals: Temp Pulse Resp BP Pulse Ox 98.5 F 105 18 149/70 98 01/11/19 11:22 01/11/19 11:22 01/11/19 11:22 01/11/19 11:22 01/11/19 11:22 Exam: Vitals: Reviewed General: Alert and oriented x4. In mild distress due to abdominal discomfort Cardiovascular: RRR, normal S1 & S2, no rubs, murmurs or gallops. Lungs: mild crackles at the left lower lobe, no wheezing or rales. Abdomen: Obese, soft, LLQ tenderness, no rigidity. NABS in all 4 quadrants Extremities: No edema Neurological: Normal cognition. Rest of the physical exam is non contributory - Assessment and Plan (1) Perforation of sigmoid colon due to diverticulitis Current Visit: Yes Status: Acute Assessment and Plan: patient afebrile with. WBC within normal limit. diet has been advanced to full liquid per surgery recommendations. will discontinue IV fluids. continue broad spectrum IV antibiotics. Blood culture: no growth, pending final report plan of care per surgery. (2) Diabetes Current Visit: Yes Status: Chronic Assessment and Plan: patient having reading of serum glucose >300, likely due to patient being on D5 NS. will add levemir 5 units hs, continue lispro. (3) Hypertension Current Visit: Yes Status: Chronic Assessment and Plan: BP is well controlled on atenolo. furosemide 40mg/PO daily added. will monitor a nd adjust medications accordingly. (4) CKD (chronic kidney disease) Current Visit: Yes Status: Chronic Assessment and Plan: kidney function is back to normal limits. continue to avoid nephrotoxic medicat ions (5) CHF (congestive heart failure) Current Visit: Yes Status: Chronic Assessment and Plan: patient with mild diastolic disfunction. started on furosemide 40mg/PO daily. patient is on 80mg of furosemide as outpatient. continue daily weight and strict intake and output. (6) Hypokalemia Current Visit: Yes Status: Acute Assessment and Plan: electrolyte replaced. (7) Hypophosphatemia Current Visit: Yes Status: Acute Assessment and Plan: electrolyte replaced. DVT Prophylaxis: intermittent pneumatic compression for DVT prophylaxis - Summary of Assessment and Plan Summary of Assessment and Plan: patient to remain in the hospital due to perforated bowel on broad spectrum IV antibiotics. - Time Spent with Patient Total time spent is greater than 50% in coordination of care (as documented) at patient's floor/unit and/or counseling patient: Greater than 35 minutes (40) Plan of Care Discussed with: patient (and the nurse.) Internal Medicine: Result - Labs CBC & Chem 7: 01/11/19 04:10 01/11/19 04:10 Labs: Short CBC 01/11/19 Range/Units 04:10 WBC 11.1 (4.3-11.1) K/mcL Hgb 12.7 L (12.9-16.9) g/dL Hct 39.1 (37.5-50.1) % Plt Count 118 L (140-400) K/mcL Neutrophils # 8.1 (1.6-8.9) K/mcL BMP 01/11/19 04:10 Sodium 139 Potassium 3.4 L Chloride 107 Carbon Dioxide 25 BUN 13 Creatinine 1.09 Glucose 178 H Calcium 8.6 - ABG Interpretation ABG results: PT/INR, D-dimer PT 13.3 Seconds (9.4-12.1) H 01/09/19 05:41 - Impressions Impressions Outside Interv Exam: Second Opinion 01/08/19 00:00 IMPRESSION: 1. Diffuse colonic diverticulosis with left lower quadrant distal descending colon acute diverticulitis with perforation and localized adjacent peritoneal air. No abscess. 2. Cirrhosis with mild perigastric varices. No ascites. 3. Cholelithiasis with no evidence of acute cholecystitis or biliary obstruction. Results of the examination were discussed with Dr. Urias on 01/09/2019 at 10:18 D/ / 01/11/2019 09:08:01 Raghu Saeed MD / [place] Interpreting Provider: Raghu Saeed MD Echocardiogram 01/10/19 09:07 Impressions: LVEF 60%. Mild concentric left ventricular hypertrophy. Mild left ventricular diastolic dysfunction. Normal right ventricular structure and function. No significant valvular dysfunction Unable to estimate RVSP due to lack of TR jet. Left Ventricular Wall Motion: Rest Echo Findings All wall segments showed normal motion. Findings: Study Quality * Technically adequate exam. ECG Findings * Normal sinus rhythm. Left Ventricle * Mild concentric left ventricular hypertrophy. * Normal LV chamber size. * Mild left ventricular diastolic dysfunction. * LVEF 60%. Right Ventricle * Normal right ventricular structure and function. Left Atrium * Normal left atrial size. Right Atrium * Normal right atrial size. Interatrial Septum * Interatrial septum not well evaluated. Aortic Valve * Aortic valve not well visualized. * No aortic stenosis. * Trace aortic regurgitation. Mitral Valve * Normal mitral valve structure. * No mitral stenosis. * Trace mitral regurgitation. Tricuspid Valve * Trace tricuspid regurgitation. * No tricuspid stenosis. * Normal tricuspid valve structure. * Unable to estimate RVSP due to lack of TR jet. Pulmonic Valve * No pulmonic regurgitation. Aorta * Normally sized aortic root. Pericardium * The pericardium appears normal. IVC * Normal IVC dimensions and inspiratory collapse. Pulmonary Artery * Pulmonary artery not well visualized. Consult Discharge Plan - Plan Referrals: [facility] [Primary Care Provider] - (2) Diabetes Qualifiers: Diabetes mellitus type: type 2 Diabetes mellitus intermediate frame tender insulin use: unspecified group home insulin use status Diabetes mellitus complication status: with unspecified complications Qualified Code(s): E11.8 - Type 2 diabetes mellitus with unspecified complications (3) Hypertension Qualifiers: Hypertension type: unspecified Qualified Code(s): I10 - Essential (primary) hypertension (4) CKD (chronic kidney disease) Qualifiers: Chronic kidney disease stage: stage 2 (mild) Qualified Code(s): N18.2 - Chronic kidney disease, stage 2 (mild) (5) CHF (congestive heart failure) Qualifiers: Heart failure type: diastolic Heart failure chronicity: chronic Qualified Code(s): I50.32 - Chronic diastolic (congestive) heart failure
[2019-01-11] MEDS ORDERED: Insulin DETEMIR 100 UNIT/ML X5UNITS SQ SCH (21:00)
[2019-01-12] MEDS: Piperacillin/Tazobactam 3.375 GM in 0.9 % Sodium Chloride Mini Bag 100 ML IVPB SCH ×2 (01:37→12:37)
[2019-01-12] MEDS: MetroNIDAZOLE 500 MG/100 ML 500 MG/100 ML BAG IVPB SCH ×2 (05:29→12:38)
[2019-01-12 06:51] LABS: Basophils % 0.3 %; Eosinophils # 0.2 K/mcL (0.0-0.6); Eosinophils % 1.9 %; Hematocrit 39.7 % (37.5-50.1); Hemoglobin 12.9 g/dL (12.9-16.9); Immature Granulocytes % 0.9 % (0-4); Lymphocytes # 1.8 K/mcL (0.6-4.6); Lymphocytes % 16.4 %; Mean Corpuscular HGB Conc 32.5 g/dL (31.6-35.5); Mean Corpuscular Hemoglobin 27.9 pg (28.0-33.3); Mean Corpuscular Volume 85.9 fL (83.0-100.0); Mean Platelet Volume 11.4 fL (9.4-12.4); Monocytes % 8.9 %; Neutrophils # 7.7 K/mcL (1.6-8.9); Platelet Count 149 K/mcL (140-400); Red Blood Count 4.62 M/mcL (4.19-5.50); Red Cell Distribution Width 14.2 % (11.5-14.5); Segmented Neutrophils % 71.6 %
[2019-01-12 07:12] LABS: BUN/Creatinine Ratio 10 (6-26); Blood Urea Nitrogen 10 mg/dL (8-23); Calcium 8.9 mg/dL (8.6-10.3); Carbon Dioxide 24 mEq/L (23-29); Chloride 107 mEq/L (98-107); Glucose 213 mg/dL (70-105); Osmolality,Calculated 289 (280-300); Phosphorous 2.1 mg/dL (2.7-4.5); Potassium 3.7 mEq/L (3.5-5.1); Sodium 137 mEq/L (136-145); eGFR For Non-African Americans > 60 (> 60)
[2019-01-12] MEDS: Aspirin Enteric Coated 81 MG Tablet PO SCH (07:52)
[2019-01-12] MEDS: Pregabalin 75 MG CAPSULE PO SCH (07:52)
[2019-01-12] MEDS: Insulin LISPRO 300 UNITS/3 ML VIAL SQ SCH (08:04)
[2019-01-12] MEDS ORDERED: Furosemide 40 MG TABLET PO SCH (09:00)
[2019-01-12] MEDS ORDERED: Insulin DETEMIR 100 UNIT/ML X5UNITS SQ SCH (09:00)
[2019-01-12 11:26] VITALS: BP 146/83
--- NOTE | 2019-01-12 12:08 | Discharge Summary ---
- NOTES TO OUTPATIENT PROVIDER Notes to Outpatient Provider: Follow up with surgery within a week of hospital discharge. Orders not resulted at time of discharge: Pending orders 01/08/19 13:40 Culture,Blood [BC] Stat Date of Encounter: 01/12/19 Time of Encounter: 12:04 - Discharge Diagnosis (1) Perforation of sigmoid colon due to diverticulitis Priority: Primary Status: Acute (2) Diabetes Priority: Secondary Status: Chronic Qualifiers: Diabetes mellitus type: type 2 Diabetes mellitus usp insulin use: unspecified usp insulin use status Diabetes mellitus complication status: with unspecified complications Qualified Code(s): E11.8 - Type 2 diabetes mellitus with unspecified complications (3) Hypertension Priority: Secondary Status: Chronic Qualifiers: Hypertension type: unspecified Qualified Code(s): I10 - Essential (primary) hypertension (4) CKD (chronic kidney disease) Priority: Secondary Status: Chronic Qualifiers: Chronic kidney disease stage: stage 2 (mild) Qualified Code(s): N18.2 - Chronic kidney disease, stage 2 (mild) (5) CHF (congestive heart failure) Priority: Secondary Status: Chronic Qualifiers: Heart failure type: diastolic Heart failure chronicity: chronic Qualified Code(s): I50.32 - Chronic diastolic (congestive) heart failure (6) Hypokalemia Priority: Secondary Status: Resolved (7) Hypophosphatemia Priority: Secondary Status: Acute Hospital course: Mr. Ley is a 73 year old male PMH of HTN, DM2, CKD3, KEIKO, obesity, ?cirrhosis, who p/w abd pain. Pain is in left lower quadrant and began several days. [place] radiology report: CT abdomen pelvis without contrast January 08 10:49 Impression: Perforated left lower quadrant diverticulitis. Patient was admitted to the hospital due to perforated bowel. Surgery consulted, recommended conservative management. patient managed with IV antibiotics, and bowel rest. His symptoms improved and diet was advanced. A repeat abd/pelvis ct: IMPRESSION: Redemonstration of acute diverticulitis near the junction of the descending and sigmoid colon. There is a contained perforation with improved small volume of free air as described above. No abscess is seen at this time. Surger[place] recommended to discharge the patient on oral antibiotics to complete 14 days of treatment, and to follow up in his office within a week of hospital discharge. Patient is hemodynamically stable to be discharged home. - Time Spent with Patient Total time spent providing and/or coordinating discharge services: Time spent: Greater than 30 minutes (35) - Discharge Medications Prescriptions: New Moxifloxacin HCl [Avelox] 400 mg PO DAILY 10 Days #10 tablet Continue Testosterone 60.75 mg TD DAILY Tamsulosin HCl [Flomax] 0.4 mg PO DAILY Sodium Chloride 2 spr NS TID Pregabalin [Lyrica] 150 mg PO BID Potassium Chloride [K-Tab ER] 20 meq PO DAILY Omeprazole [PriLOSEC] 20 mg PO BID Mupirocin [Bactroban Oint] 1 appl TP TID PRN PRN Reason: WOUND CARE Melatonin [Melatin] 3 mg PO HS Losartan Potassium [Cozaar] 50 mg PO BID Lidocaine Patch [Lidoderm 5% patch] 1 each TP DAILY Insulin Glargine [Lantus] 110 unit SQ BID Insulin Regular, Human [Novolin R] 35 unit SQ TIDWM glipiZIDE [Glipizide] 10 mg PO BID Furosemide [Lasix] 80 mg PO DAILY Fluticasone Propionate Nasal [Flonase] 2 spr NS HS GuaiFENesin/Dextromethorphan [Robitussin/Dm] 10 ml PO Q6HR PRN PRN Reason: Cough Cetirizine HCl [24Hour Allergy] 10 mg PO DAILY Amino Acids/Mv,Th W-Fe,Mn [Biotect Plus Liquid] 3 - 5 spr PO BID PRN PRN Reason: Dry Mouth Atenolol [Tenormin] 50 mg PO BID Amlodipine Besylate 2.5 mg PO DAILY Aspirin [Lo-Dose Aspirin EC] 81 mg PO DAILY Home Medications: Amino Acids/Mv,Th W-Fe,Mn [Biotect Plus Liquid] 3 - 5 spr PO BID PRN 01/08/19 [History] Amlodipine Besylate 2.5 mg PO DAILY 01/08/19 [History] Aspirin [Lo-Dose Aspirin EC] 81 mg PO DAILY 01/08/19 [History] Atenolol [Tenormin] 50 mg PO BID 01/08/19 [History] Cetirizine HCl [24Hour Allergy] 10 mg PO DAILY 01/08/19 [History] Fluticasone Propionate Nasal [Flonase] 2 spr NS HS 01/08/19 [History] Furosemide [Lasix] 80 mg PO DAILY 01/08/19 [History] GuaiFENesin/Dextromethorphan [Robitussin/Dm] 10 ml PO Q6HR PRN 01/08/19 [History] Insulin Glargine [Lantus] 110 unit SQ BID 01/08/19 [History] Insulin Regular, Human [Novolin R] 35 unit SQ TIDWM 01/08/19 [History] Lidocaine Patch [Lidoderm 5% patch] 1 each TP DAILY 01/08/19 [History] Losartan Potassium [Cozaar] 50 mg PO BID 01/08/19 [History] Melatonin [Melatin] 3 mg PO HS 01/08/19 [History] Mupirocin [Bactroban Oint] 1 appl TP TID PRN 01/08/19 [History] Omeprazole [PriLOSEC] 20 mg PO BID 01/08/19 [History] Potassium Chloride [K-Tab ER] 20 meq PO DAILY 01/08/19 [History] Pregabalin [Lyrica] 150 mg PO BID 01/08/19 [History] Sodium Chloride 2 spr NS TID 01/08/19 [History] Tamsulosin HCl [Flomax] 0.4 mg PO DAILY 01/08/19 [History] Testosterone 60.75 mg TD DAILY 01/08/19 [History] glipiZIDE [Glipizide] 10 mg PO BID 01/08/19 [History] Moxifloxacin HCl [Avelox] 400 mg PO DAILY 10 Days #10 tablet 01/12/19 [Rx] Allergies/Adverse Reactions: Allergy/AdvReac Type Severity Reaction Status Date / Time acetaminophen [From Vicodin] AdvReac Agitated Verified 01/08/19 16:22 hydrocodone [From Vicodin] AdvReac Agitated Verified 01/08/19 16:22 Date of admission: 01/08/19 17:01 [facility] care physician: [facility] Consults: 01/08/19 14:14 Consult to Surgery [CONS] Stat Consulting Provider: Surgery [facility] - [facility] Reason for Consult: LLQ pain, perf diverticuli Time Notified: 14:14 Call Completed: Yes - Constitutional Vitals: Temp Pulse Resp BP Pulse Ox 98.5 F 75 16 146/83 95 01/12/19 11:00 01/12/19 11:00 01/12/19 11:00 01/12/19 11:00 01/12/19 11:00 Exam: Vitals: Reviewed General: Alert and oriented x4. In no distress Cardiovascular: RRR, normal S1 & S2, no rubs, murmurs or gallops. Lungs: mild crackles at the left lower lobe, no wheezing or rales. Abdomen: Obese, soft, mild LLQ tenderness, no rigidity. NABS in all 4 quadrants Extremities: 2+ edema. Neurological: Normal cognition. Rest of the physical exam is non contributory - Patient Status Disposition: Home, Self-Care Condition: Good Functional capacity at discharge: independent ambulation Overall status at discharge: patient is progressing back to baseline - Discharge Instructions Follow Up With: [facility] [Primary Care Provider[facility] - - Diet and Activity Activity: resume usual activities as tolerated Diet: diabetic diet, low salt diet
--- NOTE | 2019-01-12 12:18 | General Surgery Progress Note ---
Date of Encounter: 01/12/19 Time of Encounter: 11:45 Subjective Patient reports: feels better, tolerating liquids well Narrative: General Surgery - POD #4 Patient feeling well, voicing no complaints. The patient remains afebrile, hemodynamically stable CT abdomen and pelvis, repeated this morning, reviewed with [facility]. Findings include minor bilateral dependent atelectasis; stable calcified granuloma lateral left lung; cirrhotic appearance of the liver; likely gallstone dependent portion of the gallbladder; persistent but improved diverticulitis near the junction of the descending and sigmoid colons with contained perforation. Mesenteric gas seen on previous examination much less pronounced. There is reactive adenopathy and diffuse colonic diverticulosis. Lungs: Clear Abdomen: Soft, nontender to vigorous palpation. No discernible intra-abd ominal masses or rebound. Laboratories show white count 10.8 with normal differential; hemoglobin stable at 12.9/to hematocrit 39.7 Electrolytes, BUN, creatinine within normal limits. Hypokalemia corrected. Accu-Cheks to 187 to 311 Impression: Acute sigmoid diverticulitis with focal perforation. Acute inflammation responding to IV antibiotics, left lower quadrant pain resolved Patient tolerating full liquid Treatment options include sigmoid colectomy during this hospitalization versus allowing patient to be discharged on oral antibiotics scheduling elective sigmoid colectomy in the next several weeks depending on his continued response to medical management. The patient is comfortable with discharge home Discussed with Dr. Hanna Recommendations Discharge home, Avelox 400 mg by mouth daily 10 more days (complete 14 day course of antibiotics) Outpatient follow-up my office, 01/18/19. Patient to call office to make this appointment. Patient may consume a diabetic diet; he should avoid constipation Activity as tolerated Objective Vital Signs - Last 8 Hours Temp Pulse Resp BP Pulse Ox 01/12/19 11:00 98.5 F 75 16 146/83 95 01/12/19 07:58 98.6 F 80 16 145/72 97 01/12/19 04:52 98.5 F 77 14 147/80 97 Intake and Output 01/11/19 01/12/19 01/12/19 23:59 07:59 15:59 Intake Total 200 / 200 300 / 300 Output Total 1010 / 1010 950 / 950 320 / 320 Balance -810 / -810 -650 / -650 -320 / -320 Intake: IV Fluids 200 / 200 300 / 300 Flagyl Premix 500 MG/100 ML 500 100 / 100 200 / 200 mg In 100 ml @ 100 mls/hr IVPB Q6HR [facility] Rx#:[id number] Zosyn 3.375 GM In 0.9 % Sodium 100 / 100 100 / 100 Chloride (Mini-Bag +) 100 ML @ 25 mls/hr IVPB Q8H [facility] Rx#: [id number] Oral 0 / 0 Output: Urine 1010 / 1010 950 / 950 320 / 320 Other: Stool Size Moderate Stool Consistency soft Stool Color Brown # Voids 1 Blood Glucose* 295 187 237 - Labs 01/12/19 06:09 01/12/19 06:09 Diabetes panel 01/12/19 Range/Units 06:09 Sodium 137 (136-145) mEq/L Potassium 3.7 (3.5-5.1) mEq/L Chloride 107 (98-107) mEq/L Carbon Dioxide 24 (23-29) mEq/L BUN 10 (8-23) mg/dL Creatinine 1.04 (0.70-1.30) mg/dL Glucose 213 H (70-105) mg/dL Calcium 8.9 (8.6-10.3) mg/dL Calcium panel 01/12/19 Range/Units 06:09 Calcium 8.9 (8.6-10.3) mg/dL Phosphorus 2.1 L (2.7-4.5) mg/dL Pituitary panel 01/12/19 Range/Units 06:09 Sodium 137 (136-145) mEq/L Potassium 3.7 (3.5-5.1) mEq/L Chloride 107 (98-107) mEq/L Carbon Dioxide 24 (23-29) mEq/L BUN 10 (8-23) mg/dL Creatinine 1.04 (0.70-1.30) mg/dL Glucose 213 H (70-105) mg/dL Calcium 8.9 (8.6-10.3) mg/dL Adrenal panel 01/12/19 Range/Units 06:09 Sodium 137 (136-145) mEq/L Potassium 3.7 (3.5-5.1) mEq/L Chloride 107 (98-107) mEq/L Carbon Dioxide 24 (23-29) mEq/L BUN 10 (8-23) mg/dL Creatinine 1.04 (0.70-1.30) mg/dL Glucose 213 H (70-105) mg/dL Calcium 8.9 (8.6-10.3) mg/dL Consult Discharge Plan - Plan Referrals: [facility] [Primary Care Provider] -
--- NOTE | 2019-01-13 17:11 | Electrocardiograph Report ---
[place] [id number] Test Date: 2019-01-08 Pat Name: Alonso Ley Department: [id number] Room: 3A44 Gender: M [employer]: : 1945 Requested By: Roberth Isabel Order Number: [id number] Reading MD: Shruti Bardales Measurements Intervals [place] Rate: 67 P: 22 [place]: 151 QRS: 25 QRSD: 103 T: -9 QT: 393 QTc: 415 Interpretive Statements Sinus rhythm Borderline T abnormalities, inferior leads Electronically Signed On 01-13-2019 17:10:13 EDT by Shruti Bardales
== END 2019-01-12 17:58 | disposition home or self-care (01) | DRG 392 ==
LOC: 3ANU 12:59 → EMEROOARM 12:59 → 3ANU 16:04 → SUATTDRO 17:01
PROVIDERS: ADMIT Internal Medicine; ATTEND Internal Medicine